=== PATIENT | female | born 1985 | race Hispanic/Latino ===

== ENCOUNTER 2017-06-11 14:09 | Emergency (ER) | payer SELFPAY ==
[2017-06-11 14:29] VITALS: BP 131/83; PULSE 89; RESP 18; TEMP 99; O2SAT 100
--- NOTE | 2017-06-11 15:38 | ED PDOC ---
HPI: Female Pain Chief Complaint (Provider): Vaginal bleeding History Per: Patient History/Exam Limitations: no limitations Onset/Duration Of Symptoms: Hrs Current Symptoms Are (Timing): Still Present Pain Scale Rating Of: 3 Quality Of Discomfort: Cramping (suprapubic) Associated Symptoms: denies: Fever, Nausea, Vomiting, Diarrhea, Urinary Symptoms Additional Complaint(s): 31 y/o F with no PMHx presents to ED c/o spotting vaginal bleeding since this morning. Patient is 6 weeks . G1. LMP 04/30/17. She was in the hosp 3 days ago and betaHCG was >04827. PMD Dr Quinones. Denies trauma, vomiting, nausea , diarrhea, headaches, dizziness, palpitations, SOB or CP. C/o mild pelvic cramps for the past 2 weeks. Abnormal Vaginal Bleeding: Yes Last Menstral Period: 04/30/17 : 1 Para: 0 <Parminder Funes - Last Filed: 06/11/17 16:39> <Sergio Hyman - Last Filed: 06/11/17 18:40> Chief Complaint (Nursing): Female Genitourinary Supervising Attending Note - Supervising Attending Note The Documented history was done by the: Physician [employer]ing [employer]ary The documented physical exam was done by the: Physician Traveling Missionary The documented procedures were done by the: Physician Traveling Missionary - Attestation: I have personally seen and examined this patient.: Yes I have fully participated in the care of the patient.: Yes I have reviewed all pertinent clinical information, including history, physical exam and plan: Yes - Notes: Notes:: Vaginal bleeding Preg. <Sergio Hyman - Last Filed: 06/11/17 18:40> Past Medical History Reviewed: Nursing Documentation, Vital Signs Vital Signs: Last Vital Signs Temp 99 F 06/11/17 14:23 Pulse 89 06/11/17 14:23 Resp 18 06/11/17 14:23 BP 131/83 06/11/17 14:23 Pulse Ox 100 06/11/17 14:23 - Medical History PMH: No Chronic Diseases - Surgical History Other surgeries: Breast augmentation - Family History Family History: States: No Known Family Hx - Social History Current smoker - smoking cessation education provided: No Alcohol: None <Parminder Funes - Last Filed: 06/11/17 16:39> Vital Signs: Last Vital Signs Temp 99 F 06/11/17 14:23 Pulse 89 06/11/17 14:23 Resp 18 06/11/17 14:23 BP 131/83 06/11/17 14:23 Pulse Ox 100 06/11/17 16:41 <Sergio Hyman - Last Filed: 06/11/17 18:40> - Allergies Allergies/Adverse Reactions: Allergies Allergy/AdvReac Type Severity Reaction Status Date / Time No Known Allergies Allergy Verified 06/11/17 14:23 Review of Systems ROS Statement: Except As Marked, All Systems Reviewed And Found Negative Genitourinary Female: Positive for: Vaginal Bleeding (spotting), Pelvic Pain ( cramping) <Parminder Funes - Last Filed: 06/11/17 16:39> Physical Exam - Reviewed Vital Signs Reviewed: Yes - Physical Exam Appears: Positive for: Non-toxic, No Acute Distress Head Exam: Positive for: ATRAUMATIC, NORMAL INSPECTION Skin: Positive for: Normal Color, Warm Cardiovascular/Chest: Positive for: Regular Rate, Rhythm. Negative for: Gallop , Murmur Respiratory: Positive for: Normal Breath Sounds. Negative for: Crackles, Wheezing Gastrointestinal/Abdominal: Positive for: Soft. Negative for: Tenderness, Distended, Guarding, Rebound Back: Negative for: L CVA Tenderness, R CVA Tenderness Extremity: Positive for: Normal ROM. Negative for: Tenderness, Pedal Edema Neurologic/Psych: Positive for: Alert, Oriented. Negative for: Motor/Sensory Deficits <Parminder Funes - Last Filed: 06/11/17 16:39> - Physical Exam Cardiovascular/Chest: Positive for: Regular Rate, Rhythm Respiratory: Positive for: Normal Breath Sounds Gastrointestinal/Abdominal: Positive for: Soft. Negative for: Tenderness <Sergio Hyman - Last Filed: 06/11/17 18:40> - ECG O2 Sat by Pulse Oximetry: 100 <Parminder Funes - Last Filed: 06/11/17 16:39> - Laboratory Results Result Diagrams: 06/11/17 16:55 06/11/17 16:55 Interpretation Of Abn Labs: 24,225 bhcg - Progress ED Course And Treament: 1839: Stable. AAOx3. Pain free. Tolerated PO. Fu with pcp. <Sergio Hyman - Last Filed: 06/11/17 18:40> Medical Decision Making Medical Decision Makin31 y/o F with no PMHx, G1, present c/o spotting vaginal bleeding 1st trimester vaginal bleeding Rule out threatened and ectopic TV and Obstetric US BetaHCG CMP, CBC, T&S <Parminder Funes - Last Filed: 06/11/17 16:39> Disposition <Parminder Funes - Last Filed: 06/11/17 16:39> - Patient ED Disposition Is Patient to be Admitted: No Counseled Patient/Family Regarding: Studies Performed, Diagnosis, Need For Followup - Disposition Disposition: Routine/Home Disposition Time: 18:39 <Sergio Hyman - Last Filed: 06/11/17 18:40> - Clinical Impression Clinical Impression: Threatened miscarriage - Disposition Condition: STABLE Additional Instructions: Return if not in 3 days. See the obgyn in 3 days. Instructions: Threatened Miscarriage (ED) Forms: [employer] (Togolese)
--- NOTE | 2017-06-11 17:08 | US ---
PROCEDURE: First trimester ultrasound HISTORY: pain of COMPARISON: None TECHNIQUE: Transvaginal only. Real -time technique with 2D, duplex and color Doppler FINDINGS: Uterus measures 3.7 x 4.6 x 8.6 cm. Gestational sac mean 1.24 cm corresponds to gestational age of 5 weeks 3 days. Yolk sac identified. No pole identified. Gestational age based On LMP 04/30/2017 6 weeks 0 days. Closed cervix 3.7 cm. Right ovary 1.6 x 2.2 cm. Doppler arterial waveform documented. Left ovary: 2 x 2 x 2.5 cm. Unremarkable Doppler arterial waveform documented. IMPRESSION: Early intrauterine gestation. KATHIA based on LMP: 02/04/2018 KATHIA based on biometry: 02/09/2018.
[2017-06-11 17:17] LABS: BASO # 0.1 K/uL (0.0-0.2); BASO % 0.8 % (0.0-2.0); EOS # 0.1 K/uL (0.0-0.7); EOS % 0.7 % (0.0-4.0); HEMOGLOBIN 11.5 g/dL (12.0-16.0); LYMPH % 34.8 % (20.0-40.0); MEAN CELL VOLUME 93.2 fl (81.0-99.0); MEAN CORPUSCULAR HEMOGLOBIN 30.9 pg (27.0-31.0); MEAN CORPUSCULAR HGB CONC 33.1 g/dL (33.0-37.0); MEAN PLATELET VOLUME 9.6 fl (7.2-11.7); MONO % 11.3 % (0.0-10.0); NEUT # 4.5 K/uL (1.8-7.0); NEUT % 52.4 % (50.0-75.0); RBC 3.72 Mil/uL (3.80-5.20); RED CELL DISTRIBUTION WIDTH 13.6 % (11.5-14.5); WHITE BLOOD COUNT 8.6 K/uL (4.8-10.8)
[2017-06-11 17:22] LABS: BLOOD UREA NITROGEN 9 mg/dl (7-17); CALCIUM 9.5 mg/dL (8.4-10.2); GFR AFRICAN-AMERICAN > 60; GFR NON-AFRICAN AMERICAN > 60
== END 2017-06-11 18:50 | disposition home or self-care (01) ==
LOC: H.ER 14:09
DX: O20.0 Threatened abortion (principal); Z3A.01 Less than 8 weeks gestation of pregnancy

== ENCOUNTER 2018-01-14 07:04 | Emergency (ER) | payer BC ==
[2018-01-14 07:32] VITALS: BMI 28.4
--- NOTE | 2018-01-14 09:54 | US ---
PROCEDURE: OB Pelvic Ultrasound HISTORY: decreased movement LMP: Unknown COMPARISON: None available. FINDINGS: UTERUS: Gestational sac: A single viable intrauterine gestation identified with cardiac activity measuring 144 beats per minute. Biophysical profile score is 8. breathing movements score 2. movements score 2. tones score 2. Amniotic fluid score 2. biometry not performed as requested with biophysical profile performed as above. OTHER FINDINGS: None. IMPRESSION: Biophysical profile score total is 8. Please see details above.
--- NOTE | 2018-01-14 10:16 | OBDCSUM ---
Datetime: 01/14/2018 10:10 Discharged to, Provider: Home Follow up at, Provider: Dr Quinones Disch Instr Activity: Normal activity Disch Instr Diet: Regular Discharge Instructions, Provider: Routine instructions given Discharge Time: 01/14/2018 10:10 Follow up in weeks, Provider: Next Scheduled Appointment Disch Referrals: None Discharge Diagnosis Prov Other: Decreased movement at 36 weeks
--- NOTE | 2018-01-14 10:17 | OBHP ---
Datetime: 01/14/2018 08:06 IP Adm Impression: , intrauterine IP Admit Plan: Observation/Evaluation; Discharge home Admit Comment, IP Provider: 32 yo at 36 wks w/ EDC 02/11/2018 by 6+ wk u/s reports that she has not been feeling the baby move throughout the night and this morning. Pt reports that she usuall y feels the babymoving a lot in the am. Pt reports that she feels [place] this am. Pt denies VB, LOF. 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 Hough 2x/ week to follow growth Pt has an appointment w/ me on ., 01/18/2018 Extremities - PN: Normal Abdomen - PN: Normal Back - PN: Normal Lungs - PN: Normal Heart - PN: Normal General - PN: Normal FHR - Baseline A Provider: 130's Contraction Comments Provider: irregular EGA AdmitDate IP: 36.0 Vital Signs Provider: Reviewed; Within Normal Limits IP Chief Complaint: Decreased movement NICHD Variability Prov Fetus A: Moderate 6-25bpm NICHD Accel Fetus A IP Provider: 15X15 NICHD Decel Fetus A IP Provider: Variable
[2018-01-15 01:23] VITALS: BP 134/76; PULSE 86
== END 2018-01-14 10:10 | disposition home or self-care (01) ==
LOC: H.EROB2 07:04 → H.L&D 07:19 → H.EROB2 10:10
DX: O36.8130 Decreased fetal movements, third trimester, not applicable or unspecified (principal); Z3A.36 36 weeks gestation of pregnancy

== ENCOUNTER 2018-01-18 16:26 | Emergency (ER) | payer BC ==
--- NOTE | 2018-01-18 18:12 | OBDCSUM ---
Datetime: 01/18/2018 18:01 Discharged to, Provider: Home Follow up at, Provider: Shankar Jara Instr Activity: Normal activity Disch Instr Diet: Regular Discharge Instructions, Provider: Routine instructions given Discharge Time: 01/18/2018 18:10 Follow up in weeks, Provider: to call for appointment in am Disch Referrals: None Contraception discussed, Prov: Yes Discharge Diagnosis Prov Other: reactive NST
--- NOTE | 2018-01-18 18:12 | OBHP ---
Datetime: 01/18/2018 17:18 IP Adm Impression: , intrauterine ; No Active Labor; Intact Membranes IP Admit Plan: Discharge home Admit Comment, IP Provider: IUP at 36w sent from PMD to check FH. Doppler at the office ?80 -110's. She feels baby moving She florentino no CTX; no VB; PNC: CP Dr Quinones - followed for SGA with biweekly NST PMH: denies PSH: denies NKA PSoH Denies smoking ETOH drugs POBGYNH: TOP x 1; spont ab x 1 She declined SVE A: IUP at 36w reactive NST PLAN: discahrge home and follow up as scheduled next wk. Presentation-Admit: Vertex FHR - Baseline A Provider: 135 IP Hx Assessment: The History has been Reviewed and is Current EGA AdmitDate IP: 36.4 IP Chief Complaint: Other NICHD Variability Prov Fetus A: Moderate 6-25bpm NICHD Accel Fetus A IP Provider: 15X15 FHR Category Provider Fetus A: Category I NICHD Decel Fetus A IP Provider: None
[2018-01-18 22:56] VITALS: BP 120/82; PULSE 89; RESP 18; TEMP 98.1; O2SAT 100
== END 2018-01-18 18:10 | disposition home or self-care (01) ==
LOC: H.EROB2 16:26
DX: O76 Abnormality in fetal heart rate and rhythm complicating labor and delivery (principal); Z3A.36 36 weeks gestation of pregnancy; O36.5930 Maternal care for other known or suspected poor fetal growth, third trimester, not applicable or unspecified

== ENCOUNTER 2018-01-21 10:35 | Emergency (ER) | payer BC ==
--- NOTE | 2018-01-21 12:29 | OBHP ---
Datetime: 01/21/2018 11:40 IP Adm Impression: Term, intrauterine ; No Active Labor; Intact Membranes IP Admit Plan: Discharge home Admit Comment, IP Provider: IUP at 37w with CTX pain since yesterday at work. She noticed s ome wetness in vagina today. CTX this morning was q15m. +FM; no VB. Since GBS was done, she feels vaginal burning. No malodorous discharge. + wet feeling. PNC: CP Dr Quinones - followed for SGA with biweekly NST PMH: denies PSH: denies NKA PSoH Denies smoking ETOH drugs POBGYNH: TOP x 1; spont ab x 1 Vagina: + thick white curdy discharge/disomfort with SSE and SVE SE closed A: IUP at 37w Not in labor Candidal vaginitis PLAN: discharge home Terazol _; Tyelenol 650mg po q 4h prn pain Labor instructions; pre-eclampsia warning Call office and follow up next wk. Pelvic Type - PN: Adequate Abdomen - PN: Normal General - PN: Normal FHR - Baseline A Provider: 130 Membranes, Provider: Intact Contraction Comments Provider: occ Pool Provider: Negative Ferning Provider: Negative IP Hx Assessment: The History has been Reviewed and is Current EGA AdmitDate IP: 37.0 Vital Signs Provider: Reviewed IP Chief Complaint: Uterine contractions; Suspected ruptured membranes NICHD Variability Prov Fetus A: Moderate 6-25bpm NICHD Accel Fetus A IP Provider: 15X15 FHR Category Provider Fetus A: Category I NICHD Decel Fetus A IP Provider: None Dilatation, Provider: 0 Effacement, Provider: 0 Genitourinary Exam: Normal
--- NOTE | 2018-01-21 12:32 | OBDCSUM ---
Datetime: 01/21/2018 11:40 Follow up at, Provider: Dr Quinones Disch Instr Activity: Normal activity Disch Instr Diet: Regular Discharge Diagnosis, Provider: False Labor - Undelivered Discharge Time: 01/28/2018 11:40 Follow up in weeks, Provider: as per schedule/next week Disch Activity Restrictions: No sexual activity; Nothing in vagina - [place], tampons, douche Discharge Diagnosis Prov Other: Not in labor Candidal vaginitis
== END 2018-01-21 11:45 | disposition home or self-care (01) ==
LOC: H.EROB2 10:35
DX: O26.93 Pregnancy related conditions, unspecified, third trimester (principal); R10.2 Pelvic and perineal pain; A56.02 Chlamydial vulvovaginitis; Z3A.37 37 weeks gestation of pregnancy

== ENCOUNTER 2018-01-21 14:00 | Inpatient (IN) | payer BC ==
[2018-01-21 14:25] VITALS: BMI 29.7
[2018-01-21] MEDS: Lactated Ringer's 1,000 ML IV SCH ×2 (15:00→16:14)
[2018-01-21] MEDS ORDERED: Penicillin G 5 Million Unit Vial IVPB ONE (15:02)
[2018-01-21 15:06] LABS: BASO # 0.1 K/uL (0.0-0.2); BASO % 0.6 % (0.0-2.0); EOS # 0.1 K/uL (0.0-0.7); EOS % 0.8 % (0.0-4.0); HEMOGLOBIN 12.3 g/dL (12.0-16.0); LYMPH # 2.7 K/uL (1.0-4.3); LYMPH % 18.4 % (20.0-40.0); MEAN CELL VOLUME 96.3 fl (81.0-99.0); MEAN CORPUSCULAR HGB CONC 33.2 g/dL (33.0-37.0); NEUT # 10.7 K/uL (1.8-7.0); NEUT % 73.2 % (50.0-75.0); RBC 3.84 Mil/uL (3.80-5.20)
[2018-01-21] MEDS ORDERED: Nalbuphine 20 mg/ml Inj (1 ml) IVP PRN (15:07)
[2018-01-21 15:08] LABS: WHITE BLOOD COUNT 14.6 K/uL (4.8-10.8)
--- NOTE | 2018-01-21 15:10 | OBHP ---
Datetime: 01/21/2018 14:50 IP Adm Impression: Term, intrauterine ; Active labor; Intact Membranes IP Adm Impression Other: GBS+ IP Admit Plan: Admit to unit; Initiate labor protocol Admit Comment, IP Provider: IUP at 37w with CTX pain which has continued since leaving at 12 pm. MOre painfuland more frequent. Scant VB noted with mucous. +FM. Still felt some leaking. PNC: CP Dr Quinones - followed for SGA with biweekly NST PMH: denies PSH: denies NKA PSoH Denies smoking ETOH drugs POBGYNH: TOP x 1; spont ab x 1 A: IUP at 37w in labor GBS+ PLAN: IV Ab Admit to L_D, IV access, labs, pain management, labor, delivey and care Abdomen - PN: Normal Back - PN: Normal Lungs - PN: Normal Heart - PN: Normal Thyroid - PN: Normal Neurologic - PN: Normal HEENT - PN: Normal General - PN: Normal Presentation-Admit: Vertex FHR - Baseline A Provider: 135 Membranes, Provider: Intact Pool Provider: Negative IP Hx Assessment: The History has been Reviewed and is Current EGA AdmitDate IP: 37.0 Vital Signs Provider: Reviewed; Within Normal Limits IP Chief Complaint: Uterine contractions NICHD Variability Prov Fetus A: Moderate 6-25bpm NICHD Accel Fetus A IP Provider: 15X15 FHR Category Provider Fetus A: Category I NICHD Decel Fetus A IP Provider: None Dilatation, Provider: 4 Effacement, Provider: 80 Station, Provider: -1
--- NOTE | 2018-01-21 15:13 | OBADHP ---
Datetime: 01/21/2018 14:50 IP Adm Impression Other: GBS+ Admit Comment, IP Provider: IUP at 37w with CTX pain which has continued since leaving at 12 pm. MOre painfuland more frequent. Scant VB noted with mucous. +FM. Still felt some leaking. PNC: CP Dr Quinones - followed for SGA with biweekly NST PMH: denies PSH: denies NKA PSoH Denies smoking ETOH drugs POBGYNH: TOP x 1; spont ab x 1 A: IUP at 37w in labor GBS+ PLAN: IV Ab Admit to L_D, IV access, labs, pain management, labor, delivey and care Abdomen - PN: Normal Back - PN: Normal Lungs - PN: Normal Heart - PN: Normal Thyroid - PN: Normal Neurologic - PN: Normal HEENT - PN: Normal General - PN: Normal Presentation-Admit: Vertex FHR - Baseline A Provider: 135 Membranes, Provider: Intact Pool Provider: Negative IP Hx Assessment: The History has been Reviewed and is Current Vital Signs Provider: Reviewed; Within Normal Limits IP Chief Complaint: Uterine contractions NICHD Variability Prov Fetus A: Moderate 6-25bpm NICHD Accel Fetus A IP Provider: 15X15 FHR Category Provider Fetus A: Category I NICHD Decel Fetus A IP Provider: None Dilatation, Provider: 4 Effacement, Provider: 80 Station, Provider: -1 EGA AdmitDate IP: 37.0 IP Adm Impression: Term, intrauterine ; Active labor; Intact Membranes IP Admit Plan: Admit to unit; Initiate labor protocol Datetime: 01/21/2018 11:40 Pelvic Type - PN: Adequate Contraction Comments Provider: occ Ferning Provider: Negative Genitourinary Exam: Normal Datetime: 01/14/2018 08:06 Extremities - PN: Normal
[2018-01-21] MEDS ORDERED: fentaNYL 250 MCG, Bupivacaine HCl 0.5% 31.25 ML in Sodium Chloride 0.9% 88.75 ML EPI ONE (15:31)
[2018-01-21] MEDS ORDERED: Oxytocin 30 units/LR 500ML 30 U/500 ML BAG IV ONE (15:33)
[2018-01-21] MEDS ORDERED: Bupivacaine HCl 0.25% PF (10 ml) Inj ONE (15:34)
[2018-01-21] MEDS ORDERED: Lidocaine 1% Inj (20ml) ONE (16:17)
--- NOTE | 2018-01-21 18:21 | OBPN ---
Datetime: 01/21/2018 18:10 IP Progress Impression: Normal progression of labor; Reassuring heart rate IP Informed Consent Obtain: Vaginal Delivery; Risks, Benefits and Alternatives Discussed IP Progress Plan: Continue present management FHR - Baseline A Provider: 135 IP Fetus A Comments: one variable decel noted Presentation-Admit: Vertex IP Progress Note Comment: Called by nurse for variable decel noted/bloody show Mucous with blood noted at perineum- no active VB FH re-assuring Active phase of labor/progressing well GBS+ PLAN: observe labor progress - continue Ab (second dose 19:00pm) NICHD Accel Fetus A IP Provider: 15X15 FHR Category Provider Fetus A: Category I NICHD Variability Prov Fetus A: Moderate 6-25bpm Dilatation, Provider: 8 Effacement, Provider: 90 Station, Provider: -1 NICHD Decel Fetus A IP Provider: Variable Datetime: 01/21/2018 14:50 Pool Provider: Negative Membranes, Provider: Intact Vital Signs Provider: Reviewed; Within Normal Limits Datetime: 01/21/2018 11:40 Ferning Provider: Negative Contraction Comments Provider: occ
--- NOTE | 2018-01-21 23:55 | OBDS ---
MATERNAL INFORMATION Provider Comments: Uncomplicated Spontaneous Vaginal Delivery of a viable male infant with BW of an d scores of 9 and 9 with a left occipito- transverse positioning with nuchal cord X1. Baby was delivered over an intact perineum. EBL - 200mls LABOR SUMMARY EDC: 02/11/2018 00:00 No. Babies in Womb: 0 LABOR INFORMATION Onset of Labor: 01/21/2018 14:25 Group B Beta Strep: Positive
[2018-01-22 07:19] LABS: BASO # 0.1 K/uL (0.0-0.2); BASO % 0.4 % (0.0-2.0); EOS % 0.2 % (0.0-4.0); HEMOGLOBIN 9.9 g/dL (12.0-16.0); LYMPH # 2.3 K/uL (1.0-4.3); LYMPH % 12.7 % (20.0-40.0); MEAN CELL VOLUME 95.6 fl (81.0-99.0); MEAN CORPUSCULAR HEMOGLOBIN 32.5 pg (27.0-31.0); MEAN PLATELET VOLUME 10.6 fl (7.2-11.7); MONO # 1.3 K/uL (0.0-0.8); MONO % 7.2 % (0.0-10.0); NEUT # 14.7 K/uL (1.8-7.0); NEUT % 79.5 % (50.0-75.0); RBC 3.06 Mil/uL (3.80-5.20); RED CELL DISTRIBUTION WIDTH 13.4 % (11.5-14.5); WHITE BLOOD COUNT 18.5 K/uL (4.8-10.8)
--- NOTE | 2018-01-22 08:08 | OBPPN ---
Datetime: 01/22/2018 08:04 PP Pain Prov: Within normal limits PP Nausea Prov: Denies PP Flatus Prov: Yes PP Breasts Prov: Normal PP Heart Prov: Normal PP Lungs Prov: Normal PP Abdomen/Uterus Prov: Normal PP Lochia Prov: Normal PP Vulva/Perineum Prov: Normal PP CVA Tenderness Prov: Normal PP Extremities Prov: Normal PP Comments Phys Exam Prov: Abd: Soft, NT, Bs- Present UT - Firm and NT PP Impression Prov: Normal progression PP Plan Prov: Continue present management PP Progress Note Prov: S/P Uncomplicated , PPD #1 Clinically Stable. Plan: Continue care. Vital Signs Provider PP: Reviewed
[2018-01-22] MEDS: Lactobacillus Acidophilus 500 MU Cap PO SCH ×2 (10:43→17:57)
[2018-01-23] MEDS: Lactobacillus Acidophilus 500 MU Cap PO SCH (08:31)
--- NOTE | 2018-01-23 09:04 | OBDCSUM ---
Datetime: 01/23/2018 09:01 Discharged to, Provider: Home Follow up at, Provider: Dr Vladimir Jara Instr Activity: Normal activity Disch Instr Diet: Regular Discharge Instructions, Provider: Routine instructions given Discharge Diagnosis, Provider: Term Delivered Discharge Time: 01/23/2018 09:01 Follow up in weeks, Provider: 6 weeks Disch Referrals: None Contraception discussed, Prov: Yes Disch Activity Restrictions: No exercising; Nothing in vagina - [place], tampons, douche Discharge Comment, Provider: S/P Uncomplicated , Clinically Stable Discharge Diagnosis Prov Other: S/P Uncomplicated , Clinically Stable Contraception after Delivery: Undecided
[2018-01-23 21:34] VITALS: BP 114/77; PULSE 82; RESP 20; TEMP 97.9; O2SAT 100
== END 2018-01-23 17:15 | disposition home or self-care (01) | DRG 775 ==
LOC: H.EROB2 14:00 → H.L&D 14:51 → H.OB/GYN 01-22 01:57
PROVIDERS: ADMIT Obstetrics & Gynecology; ATTEND Obstetrics & Gynecology
PROC: 10E0XZZ Delivery of Products of Conception, External Approach (ICD-10-PCS; principal; 2018-01-21)
PROC: 4A1HXCZ Monitoring of Products of Conception, Cardiac Rate, External Approach (ICD-10-PCS; 2018-01-21)
DX: O76 Abnormality in fetal heart rate and rhythm complicating labor and delivery (principal); O69.81X0 Labor and delivery complicated by cord around neck, without compression, not applicable or unspecified; Z37.0 Single live birth; O99.824 Streptococcus B carrier state complicating childbirth; Z3A.37 37 weeks gestation of pregnancy